=== PATIENT | male | born 1970 | race Caucasian/White ===

== ENCOUNTER 2025-02-03 16:01 | Emergency (ER) | payer MEDICAID, OTHER ==
[~2025-02-03] VITALS: Ht 180.3 cm; Wt 122.5 kg
[~2025-02-03 16:01] MED LIST: GLIM4TAB37 PO; LISI10TA29 PO; METF-442 PO; VALA100026 PO
[2025-02-03 16:12] VITALS: TEMP 98.2
[2025-02-03 19:18] VITALS: BP 125/73; O2SAT 97
== END 2025-02-03 19:10 | disposition home or self-care (01) ==
LOC: ER 16:10
DX: T18.128A Food in esophagus causing other injury, initial encounter (principal); R11.10 Vomiting, unspecified; I10 Essential (primary) hypertension; E11.9 Type 2 diabetes mellitus without complications; J45.909 Unspecified asthma, uncomplicated; M54.2 Cervicalgia; Z79.624 Long term (current) use of inhibitors of nucleotide synthesis; Z79.84 Long term (current) use of oral hypoglycemic drugs; Z79.899 Other long term (current) drug therapy; W44.F3XA Food entering into or through a natural orifice, initial encounter; Y93.89 Activity, other specified; Y92.89 Other specified places as the place of occurrence of the external cause; Y99.8 Other external cause status
CPT/HCPCS: 70490-TC; 71250-TC

== ENCOUNTER 2025-04-16 06:32 | Emergency (ER) | payer OTHER ==
[~2025-04-16] VITALS: Ht 182.9 cm; Wt 125.6 kg
[2025-04-16] MEDS ORDERED: LIDOCAINE 2% JEL UROJET 10 ML MM ONE (06:54)
[2025-04-16] MEDS: LIDOCAINE 2% JEL UROJET 10 ML MM ONE (06:56)
[2025-04-16 07:35] LABS: PLATELET COUNT (AUTO) 208 K/uL (150-450); RED BLOOD CELL COUNT(AUTO) 6.16 MIL/uL (4.5-6.0); RED CELL DISTRIBUTION WIDTH 15.7 % (11.5-15.0); WHITE BLOOD COUNT (AUTO) 9.7 K/uL (4.3-11.0)
[2025-04-16 07:38] LABS: APPEARANCE,URINE CLEAR (CLEAR); BLOOD, URINE TRACE-INTA Ery/uL (NEGATIVE); LEUKOCYTE ESTERASE ,URINE NEGATIVE (NEGATIVE); NITRITE, URINE NEGATIVE (NEGATIVE); UGLUCOSE NEGATIVE (NEGATIVE)
[2025-04-16 07:43] LABS: CALCIUM, SERUM 9.2 mg/dL (8.5-10.1); CREATININE 1.2 mg/dL (0.6-1.3); SODIUM SERUM 138.0 mmol/L (136-145); UREA NITROGEN, BLOOD 29.0 mg/dL (7-18)
[2025-04-16 07:52] LABS: ADD URINE CULTURE NO; SQUAMOUS EPITHELIAL CELL,UR 0-2 /HPF (None Seen)
[2025-04-16] MEDS ORDERED: TAMS-12 PO (07:55)
[2025-04-16 08:52] VITALS: BP 108/68; TEMP 97.8; O2SAT 94
== END 2025-04-16 08:35 | disposition home or self-care (01) ==
LOC: ER 06:34
DX: R33.9 Retention of urine, unspecified (principal); I10 Essential (primary) hypertension; E11.9 Type 2 diabetes mellitus without complications; J45.909 Unspecified asthma, uncomplicated; Z79.624 Long term (current) use of inhibitors of nucleotide synthesis; Z79.84 Long term (current) use of oral hypoglycemic drugs; Z79.899 Other long term (current) drug therapy
CPT/HCPCS: 99284; 51702; 85025; 80048; 87086; 81001; 36415; J3490